=== PATIENT | female | born 1995 | race Caucasian/White ===

== ENCOUNTER 2017-03-05 13:04 | Emergency (ER) | payer BC ==
--- NOTE | 2017-03-05 14:20 | RAD ---
HISTORY: Fall on outstretched hand, left wrist, distal radius pain COMPARISONS: None VIEWS: 3, Frontal, lateral, and oblique views of the left breast FINDINGS: BONE DENSITY: Normal. BONES: There is no displaced fracture. JOINTS: There is no arthropathy. ALIGNMENT: There is no dislocation. SOFT TISSUES: Unremarkable. OTHER FINDINGS: None. IMPRESSION: NO ACUTE OSSEOUS INJURY. IF SYMPTOMS PERSIST, RECOMMEND REPEAT IMAGING.
--- NOTE | 2017-03-05 15:29 | UC ---
Hand/Wrist HPI - HPI Summary HPI Summary: Foosh yesterday left wrist---cintusion volar surface of left wrist and contusion base of thumb, full rom - History Of Current Complaint Hx Obtained From: Patient Hx Last Menstrual Period: [id number] ?: No Mechanism Of Injury: Foosh Onset/Duration: Sudden Onset, Lasting Days - 1, Still Present Severity Initially: Moderate Severity Currently: Moderate Pain Intensity: 6 Pain Scale Used: 0-10 Numeric Character Of Pain: Aching, Throbbing Aggravating Factor(s): Movement Alleviating: Ice, Elevation, OTC Meds Associated Signs And Symptoms: Positive: Bruising Related History: Dominant Hand Right <Leidy Pinto - Last Filed: 03/05/17 16:08> <Caterina Felder - Last Filed: 03/05/17 16:35> - History Of Current Complaint Chief Complaint: UCUpperExtremity Stated Complaint: WRIST INJURY FROM FALL Time Seen by Provider: 03/05/17 15:19 - Allergies/Home Medications Allergies/Adverse Reactions: Allergies Allergy/AdvReac Type Severity Reaction Status Date / Time No Known Allergies Allergy Verified 06/25/15 10:16 PMH/Surg Hx/FS Hx/Imm Hx Previously Healthy: Yes - Surgical History Surgical History: None - Family History Known Family History: Positive: None - Social History 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 [employer] Lives: With Family Alcohol Use: Occasionally Substance Use Type: None Smoking Status (MU): Never Smoked Tobacco <Leidy Pinto - Last Filed: 03/05/17 16:08> Review of Systems Constitutional: Negative Skin: Bruising - left wrist and thanar eminence Eyes: Negative ENT: Negative Respiratory: Negative Cardiovascular: Negative Gastrointestinal: Negative Genitourinary: Negative Motor: Negative Neurovascular: Negative Musculoskeletal: Arthralgia - left wrist Neurological: Negative Psychological: Negative, Anxious All Other Systems Reviewed And Are Negative: Yes <Leidy Pinto - Last Filed: 03/05/17 16:08> Physical Exam Triage Information Reviewed: Yes Appearance: Well-Appearing, No Pain Distress, Well-Nourished Vital Signs: Initial Vital Signs Temp 98.9 F 03/05/17 13:47 Pulse 69 03/05/17 13:47 Resp 18 03/05/17 13:47 BP 137/75 08/07/17 13:47 Pulse Ox 100 03/05/17 13:47 Vital Signs Reviewed: Yes Eye Exam: Normal Eyes: Positive: Conjunctiva Clear ENT Exam: Normal ENT: Positive: Normal ENT inspection, Hearing grossly normal, TMs normal. Negative: Nasal congestion, Nasal drainage, Trismus, Muffled/hoarse voice Dental Exam: Normal Neck exam: Normal Neck: Positive: Supple, Nontender Respiratory Exam: Normal Respiratory: Positive: Chest non-tender, Lungs clear, Normal breath sounds, No respiratory distress, No accessory muscle use Cardiovascular Exam: Normal Cardiovascular: Positive: RRR, No Murmur, Pulses Normal, Brisk Capillary Refill Musculoskeletal Exam: Normal Musculoskeletal: Positive: Strength Intact, ROM Intact, Edema @ - left wrist Neurological Exam: Normal Neurological: Positive: Alert, Muscle Tone Normal Psychological Exam: Normal Skin Exam: Normal <Leidy Pinto - Last Filed: 03/05/17 16:08> Vital Signs: Initial Vital Signs Temp 98.9 F 03/05/17 13:47 Pulse 69 03/05/17 13:47 Resp 18 03/05/17 13:47 BP 137/75 03/05/17 13:47 Pulse Ox 100 03/05/17 13:47 <Caterina Felder - Last Filed: 03/05/17 16:35> Diagnostics - Radiology No standard instances Xray Interpretation: No Acute Changes Radiology Interpretation Completed By: Radiologist <Leidy Pinto - Last Filed: 03/05/17 16:08> Hand/Wrist Course/Dx - Course Course Of Treatment: Yifan wrap applied n/m/c before and after yifan wrap applied, rice, ibuprofen,follow with ortho if no improvement - Differential Dx/Diagnosis Differential Diagnosis/HQI/PQRI: Contusion, Sprain, Strain Provider Diagnoses: Left wrist contusion/sprain <Leidy Pinto - Last Filed: 03/05/17 16:08> Discharge <Leidy Pinto - Last Filed: 03/05/17 16:08> <Caterina Felder - Last Filed: 03/05/17 16:35> - Discharge Plan Condition: Stable Disposition: HOME Prescriptions: Ibuprofen TAB* [Motrin TAB* 600 MG] 600 mg PO Q6H PRN #30 tab PRN Reason: Pain Patient Education Materials: Ibuprofen (By mouth), Contusion in Adults (ED), RICE Therapy (ED), Wrist Sprain (ED) Referrals: [facility] [Provider Group] - If Needed Attestation Statement User Type: Provider - I was available for consult. This patient was seen by the ARAVIND. The patient was not presented to, seen by, or examined by me. -Laura <Caterina Felder - Last Filed: 03/05/17 16:35>
[2017-03-05 15:49] VITALS: BP 113/66
== END 2017-03-05 15:35 | disposition home or self-care (01) ==
LOC: UCEAST 13:04
DX: S60.212A Contusion of left wrist, initial encounter (principal); S63.502A Unspecified sprain of left wrist, initial encounter; W19.XXXA Unspecified fall, initial encounter
CPT/HCPCS: 99212; G0463